=== PATIENT | female | born 1930 | race Caucasian/White ===

== ENCOUNTER 2017-07-03 10:17 | Observation (INO) | payer MEDICARE ==
[~2017-07-03] VITALS: Ht 157.5 cm; Wt 76.9 kg
[~2017-07-03 10:17] MED LIST: ASPI-496 PO; ATOR-2 PO; CLOP75TA52 PO; LISI40TA PO; METO50TA82 PO; MULT-658 PO
[2017-07-03] MEDS ORDERED: SODIUM CHLORIDE FLUSH 10ML SYR IVF ONE (10:30)
[2017-07-03] MEDS ORDERED: SODIUM CHLORIDE 0.9% 1,000ML IVBOLUS ONE (10:30)
[2017-07-03] MEDS ORDERED: ESCI10TA PO (10:32)
[2017-07-03] MEDS ORDERED: HYDR-3245 PO (10:32)
[2017-07-03] MEDS ORDERED: CHOL100011 PO (10:32)
[2017-07-03 10:46] LABS: BASOPHILS # (AUTO) 0.04 x10^3/uL (0-0.1); BASOPHILS % (AUTO) 1 % (0-1); EOSINOPHILS % (AUTO) 1 % (1-7); LYMPHOCYTES # (AUTO) 2.27 x10^3/uL (1-3.4); LYMPHOCYTES % (AUTO) 29 % (22-44); MD NO; MEAN CORPUSCULAR HEMOGLOBIN 31.9 pg (27.0-34.8); MEAN CORPUSCULAR HGB CONC 33.5 g/dL (32.4-35.8); MEAN CORPUSCULAR VOLUME 95.3 fL (80-100); MEAN PLATELET VOLUME 9.1 fL (7.4-10.4); MONOCYTES # (AUTO) 0.48 x10^3/uL (0.2-0.8); MONOCYTES % (AUTO) 6 % (2-9); NEUTROPHILS # (AUTO) 5.07 x10^3/uL (1.8-6.8); NEUTROPHILS % (AUTO) 64 % (42-75); PLATELET COUNT 178 x10^3/uL (130-400); RED BLOOD COUNT 4.77 x10^6/uL (3.82-5.3); RED CELL DISTRIBUTION WIDTH 12.8 % (9.6-15.2)
[2017-07-03 10:58] LABS: ALBUMIN 3.4 g/dL (3.4-5.0); ANION GAP 8 mmol/L (5-15); CALCIUM 9.1 mg/dL (8.5-10.1); CHLORIDE 108 mmol/L (98-107); CREATININE 0.93 mg/dL (0.55-1.02)
[2017-07-03 11:02] LABS: TROPONIN I < 0.015 ng/mL (0.000-0.045)
[2017-07-03] MEDS ORDERED: LABETALOL 5MG/ML, 20ML IVPush PRN (12:30)
[2017-07-03] MEDS ORDERED: ENOXAPARIN 40 MG/0.4 ML SQ SCH (12:30)
[2017-07-03] MEDS ORDERED: DOCUSATE 100 MG CAPSULE PO PRN (12:30)
[2017-07-03] MEDS ORDERED: ONDANSETRON ODT 4 MG PO PRN (12:30)
[2017-07-03 14:22] VITALS: BP 163/75
[2017-07-03 16:48] LABS: MICROSCOPIC NOT IND
[2017-07-03 16:52] LABS: TROPONIN I < 0.015 ng/mL (0.000-0.045)
[2017-07-03 16:53] LABS: CULTURE INDICATED? NO
[2017-07-03] MEDS ORDERED: OMNIPAQUE 350 MG/ML, 100ML BOTTLE ONE (17:59)
[2017-07-03 19:57] VITALS: BP 138/76
[2017-07-03] MEDS: METOPROLOL TARTRATE 50 MG TABLET PO SCH (20:43)
[2017-07-03] MEDS ORDERED: HYDROcodone/APAP 10/325 MG TABLET PO SCH (21:00)
[2017-07-03] MEDS ORDERED: ATORVASTATIN 80 MG TABLET PO SCH (21:00)
[2017-07-03] MEDS ORDERED: ZOLPIDEM 5MG TABLET PO PRN (23:00)
[2017-07-03 23:05] LABS: TROPONIN I < 0.015 ng/mL (0.000-0.045)
[2017-07-04 02:46] VITALS: BP 118/73
[2017-07-04 05:52] LABS: ANION GAP 7 mmol/L (5-15); CALCIUM 8.2 mg/dL (8.5-10.1); CHLORIDE 109 mmol/L (98-107)
[2017-07-04] MEDS ORDERED: ASPIRIN 325 MG TABLET EC PO SCH (06:00)
[2017-07-04 06:03] LABS: CREATININE 0.72 mg/dL (0.55-1.02)
[2017-07-04 07:39] VITALS: BP 128/63
[2017-07-04] MEDS: METOPROLOL TARTRATE 50 MG TABLET PO SCH (08:59)
[2017-07-04] MEDS ORDERED: CLOPIDOGREL 75 MG TABLET PO SCH (09:00)
[2017-07-04] MEDS ORDERED: CITALOPRAM 10 MG TABLET PO SCH (09:00)
[2017-07-04] MEDS ORDERED: MULTIVITAMIN 1 TABLET PO SCH (09:00)
[2017-07-04] MEDS ORDERED: HYDROcodone/APAP 5/325 TABLET PO ONE (09:00)
[2017-07-04] MEDS ORDERED: CHOLECALCIFEROL 1,000 UNIT TABLET PO SCH (09:00)
[2017-07-04] MEDS ORDERED: LISINOPRIL 20 MG TABLET PO SCH (09:00)
== END 2017-07-04 12:27 | disposition home or self-care (01) ==
LOC: ED 11:15 → INTOOBSV 11:27 → EDIP 11:27 → 5SO 14:13 → DCLOUNGE 07-04 12:20
PROVIDERS: ADMIT Family Medicine; ATTEND Family Medicine
DX: I16.0 Hypertensive urgency (principal); I10 Essential (primary) hypertension; E78.5 Hyperlipidemia, unspecified; I25.10 Atherosclerotic heart disease of native coronary artery without angina pectoris; E55.9 Vitamin D deficiency, unspecified; R53.81 Other malaise; M19.90 Unspecified osteoarthritis, unspecified site; G89.29 Other chronic pain; M54.5 Low back pain; E78.00 Pure hypercholesterolemia, unspecified; I25.2 Old myocardial infarction; Z87.442 Personal history of urinary calculi; Z95.5 Presence of coronary angioplasty implant and graft
CPT/HCPCS: 36415; 71045; 71275; 80048; 81003; 82040; 83735; 84443; 84484; 85025; 85379; 93005; 96360; 96361; 96372; 97162; 97165; 99285; G0378; G8978; G8979; G8980; J1650; J7030; Q9967